=== PATIENT | male | born 1940 | race Caucasian/White ===

== ENCOUNTER 2019-05-16 08:46 | Day surgery (SDC) | payer MEDICARE, BC ==
--- NOTE | 2019-05-16 06:39 | History and Physical - [place] ---
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 A spinal cord stimulatory trial on 04/26/19 had 75-85% pain control. Due to the failure of other therapies and the success of the trial, the patient presents for implantation of a permanent system. PAST MEDICAL HISTORY: Hypertension, bladder dysfunction, degenerative arthritis, and cardiac disease. PAST SURGICAL HISTORY: [] MEDICATIONS ON ADMISSION: List to be provided. SYSTEMS REVIEW: The patient seems appropriate in no acute distress. The remainder of the systems review is positive for glasses, hearing aids, and degenerative arthritis. PHYSICAL EXAMINATION: Height is 6', weight is 190. No vital signs. HEENT: Within normal limits. LUNGS: Clear. HEART: Rapid and regular. ABDOMEN: Nontender. MUSCULOSKELETAL: Examination of the musculoskeletal system shows diffuse tenderness to the lumbar spine. Range of motion does produce pain into both legs. There are motor and sensory abnormalities diffuse. Ambulation - No assistive device utilized. NEUROLOGIC: Cranial nerves are intact. 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 PLAN: Due to the failure of therapies and the success of the stimulator trial, the patient presents today for implantation of a permanent system. The procedure will be considered outpatient although an overnight stay will be evaluated. The potential risks, side effects and complications have all been carefully reviewed and discussed. JOB NUMBER: [id number] MTDD
[~2019-05-16 08:46] MED LIST: ACETAMINOPHEN 1,000 MG/100 ML BTL IVPB ONE; CEFAZOLIN 2 Gram 2 GM/50 ML BAG IVPB ONE; FAMOTIDINE 20MG TABLET PO ONE; MECLIZINE 25 MG TABLET PO ONE; METOCLOPRAMIDE 10 MG TABLET PO ONE
[2019-05-16] MEDS ORDERED: MIDAZOLAM HCL 2MG/2ML VIAL IV ONE (08:47)
[2019-05-16] MEDS ORDERED: FENTANYL PF 100MCG/2ML VIAL IV ONE (08:47)
[2019-05-16] MEDS ORDERED: GLYCOPYRROLATE 0.2 MG/ML ML IV ONE (08:47)
[2019-05-16] MEDS ORDERED: PROPOFOL 10 MG/ML VIAL IV ONE (08:47)
[2019-05-16] MEDS ORDERED: LIDOCAINE 2% MDV (20MG/ML) 20ML VIAL IV ONE (08:47)
[2019-05-16] MEDS ORDERED: RINGERS SOLUTION,LACTATED 1,000 ML IV ONE ×2 (09:30→12:20)
[2019-05-16] MEDS ORDERED: CEFAZOLIN 0.5 G in 0.9 % SODIUM CHLORIDE 1000ML 500 ML IVP ONE (11:21)
[2019-05-16] MEDS ORDERED: BUPIVACAINE 0.5% W/EPI MPF 30 ML VIAL SQ ONE ×2 (11:34)
[2019-05-16] MEDS ORDERED: LIDOCAINE 1% W/EPI 1:100,000 MDV 20 ML VIAL SQ ONE ×2 (11:34)
--- NOTE | 2019-05-18 13:00 | RADIOLOGY REPORT ---
EXAM: THORACOLUMBAR SPINE, ONE VIEW HISTORY: STATUS POST SPINAL CANAL STIMULATOR IMPLANT. TECHNIQUE: A single AP portable supine view of the spine was obtained including the thoracic and upper lumbar portions. Comparison: Intraoperative radiographs of the spine - same day. FINDINGS: Two intraspinal stimulator leads are in place entering the spinal canal at the upper lumbar/thoracolumbar level. Lead tips project at the T7 level. The leads are connected to a stimulator generator projecting at the level of the right flank. At the T12-L1 level, the more leftward positioned lead appears somewhat kinked though this may just relate to projection. Vascular calcification is noted within the upper abdomen. Post surgical changes are noted in the lower lumbar spine and there are post median sternotomy changes. The cardiac silhouette projects enlarged. IMPRESSION: DUAL LEAD INTRASPINAL STIMULATOR IN PLACE WITH LEAD TIPS PROJECTING AT THE T7 LEVEL. JOB NUMBER: [id number] MTDD
--- NOTE | 2019-05-21 08:50 | Operative Note ---
DATE OF SERVICE: 05/16/2019. DATE OF SURGERY: 05/16/2019. PRIMARY: Dr. Garcia. PREOPERATIVE DIAGNOSIS: Post lumbar laminectomy syndrome, ICD-10 Code M96.1, with radiculopathy, ICD-10 Code M54.16, M54.17. OPERATION: 1. Fluoroscopic-guided left epidural access, T10-11, placement of spinal cord stimulator Lead 1, a [employer] Infinion 16, 6 electrodes, positioned left T7. 2. Fluoroscopic-guided epidural access, left T11-12, placement of spinal cord stimulator Lead 2, a [employer] Infinion 16, 6 electrodes, positioned right T7. 3. Complex programming Lead 1 over 20 minutes, followed by complex programming of Lead 2 over 20 minutes. 4. Incision, subcutaneous dissection, and anchoring of Lead 1 and Lead 2 to supraspinous fascia using a [employer] locking anchor and nonabsorbable suture. 5. Incision, subcutaneous dissection, and creation of subcutaneous pouch at right flank for placement of generator, a [employer] programmable, rechargeable WaveWriter. 6. Tunneling between lead pouch and generator pouch, placement of each lead into generator pouch, interface each lead to generator, [employer] programmable, rechargeable WaveWriter. 7. Placement of generator into pouch, placement of leads into pouch, closure of both incisions using Stratafix suture, 2-0 fascia, 3-0 skin, Dermabond closure. 8. Complex recovery room programming, internal generator, home use, 2 stimulators, 20 minutes. SURGEON: Robby Mckinney DO. ANESTHESIA: Local sedation. ANESTHESIA PROVIDER: Malcolm Babb CRNA. INDICATION: This patient presents with a history of an intractable post lumbar laminectomy radiculopathy. Due to failure of all therapies, a spinal cord stimulator trial was conducted with 75+% pain control. Due to the failure of all therapies and the success of the trial, he is here for implantation of a permanent system. PROCEDURE: Intravenous line, vital sign monitoring, IV sedation by anesthesia. Patient positioned prone. Sterile prep, sterile technique. The epidural interspaces from the left at 10-11, 11-12 were both infiltrated with local. Using 2 standard curved access Epimed needles with loss of resistance, the space was accessed. At 11-2, spinal cord stimulator Lead 1, a [employer] Infinion 16, 6 electrodes, positioned left of midline at T7. The access at 10- 11, spinal cord stimulator Lead 2, a [employer] Infinion 16, 6 electrodes, positioned left at T7. Complex programming Lead 1 over 20 minutes, followed by complex programming of Lead 2 over 20 minutes, resulting in complete pattern stimulation across the back and into the legs. Patient indicating we hit all the areas of the pain. He was given the option to implant, continue to program, or remove. He opted to implant. Questions were repeated with the same response. He was then re-sedated by Anesthesia. The skin above and below both needles infiltrated with local anesthesia, an incision made, and subcutaneous dissection was conducted of the supraspinous fascia. Each needle was removed, and the leads were anchored at the supraspinous fascia with a [employer] locking anchor and nonabsorbable suture. At the right flank, a site picked ultimately by the patient for the generator, skin infiltrated, incision made, and subcutaneous dissection was conducted to form a pouch of suitable size and depth for the generator, a [employer] programmable, rechargeable WaveWriter. Antibiotic irrigation and Bovie hemostasis of both sides. A tunneling tool was used to carry the leads into the generator pouch, and then each lead was interfaced with the generator. The leads were placed into their own pouch, and then the generator was placed in its pouch. Both incisions were then closed using Stratafix suture, 2-0 fascia, 3-0 skin. A Dermabond closure was then used to approximate the edges of both incisions. Patient was transported to the recovery room stable. There were no side effects from the procedure or sedation. When fully awake and alert in the recovery room, complex programming of the generator performed over 20 minutes, reestablishing stimulation, pain control to all the appropriate areas. He was requesting discharge home. DISCHARGE INSTRUCTIONS: 1. The sites will remain clean and dry. Although the Dermabond will allow showering, he should not sit in water. 2. Standard medications resumed. He is to stay off his Plavix until he is seen in postop in 3-5 days. At that point, he will be cleared for his Plavix and increasing activities. 3. He can shower, but not sit in water. He is to limit his activities, in particular bend, lift, push, pull. 4. All other instructions provided, with numbers to contact for problems given. Office to contact the patient to set up the postoperative date. CC: DO Dr. Jose Romero
== END 2019-05-16 13:05 | disposition home or self-care (01) ==
LOC: SUR 08:46
PROVIDERS: ATTEND Pain Medicine Interventional Pain Medicine
DX: M96.1 Postlaminectomy syndrome, not elsewhere classified (principal); M54.16 Radiculopathy, lumbar region; M54.17 Radiculopathy, lumbosacral region; E78.00 Pure hypercholesterolemia, unspecified; E11.9 Type 2 diabetes mellitus without complications; Z79.4 Long term (current) use of insulin; Z79.01 Long term (current) use of anticoagulants
CPT/HCPCS: 36416; 72020; 82948; 85002; 95972; C1820; C1883; J0690; J7030; J7120